=== PATIENT | male | born 1985 | race African-American/Black ===

== ENCOUNTER 2021-08-20 15:09 | Emergency (ER) | payer MEDICAID ==
[~2021-08-20] VITALS: Ht 177.8 cm; Wt 134.0 kg
[2021-08-20 15:57] LABS: BASOPHILS % 0.3 % (0.0-2.0); EOSINOPHILS % 1.5 % (0.0-5.0); HEMATOCRIT. 39.4 % (42.0-52.0); HEMOGLOBIN. 13.7 g/dL (14.0-18.0); LYMPHOCYTES % 10.6 % (20.0-50.0); MEAN CORPUSCULAR VOLUME 86.2 fL (80.0-94.0); MONOCYTES % 11.9 % (2.0-8.0); NEUTROPHILS % 75.7 % (40.0-76.0); PLATELET 167 x1000/uL (130-400); RED BLOOD CELL COUNT 4.57 mill/uL (4.7-6.1); RED CELL DISTRIBUTION WIDTH 13.8 % (11.6-14.6)
[2021-08-20] MEDS ORDERED: OLANZAPINE 10 MG/VIAL IM ONE (16:00)
[2021-08-20 16:07] LABS: CHLORIDE 110 mEq/L (98-107)
[2021-08-20 16:15] LABS: ETHANOL BLOOD < 10 mg/dL
[2021-08-20 17:00] LABS: CLARITY URINE CLEAR (CLEAR); COLOR URINE DARK YELLOW (YELLOW); KETONES URINE 1+ (NEGATIVE); LEUKOCYTE ESTERASE URINE TRACE (NEGATIVE); NITRITE URINE NEGATIVE (NEGATIVE); OCCULT BLOOD URINE NEGATIVE (NEGATIVE); PROTEIN URINE 1+ (NEGATIVE)
[2021-08-20 17:12] LABS: *AMPHETAMINES SCREEN URINE NEGATIVE (NEGATIVE); *BARBITURATES SCREEN URINE NEGATIVE (NEGATIVE); *BENZODIAZEPINES SCREEN URINE NEGATIVE (NEGATIVE); *COCAINE SCREEN URINE NEGATIVE (NEGATIVE); CANNABINOID URINE SCREEN PRESUMTIVE POSITIVE (NEGATIVE); METHADONE URINE SCREEN NEGATIVE (NEGATIVE); OPIATES URINE SCREEN NEGATIVE (NEGATIVE); PHENCYCLIDINE URINE SCREEN NEGATIVE (NEGATIVE)
[2021-08-20] MEDS ORDERED: HALOPERIDOL LACTATE 5MG/ML VIAL IM ONE (21:00)
[2021-08-21] MEDS: OLANZAPINE 5MG TABLET ODT PO SCH ×2 (09:15→17:40)
[2021-08-21] MEDS ORDERED: LORAZEPAM 1MG TABLET PO ONE ×2 (10:30→23:00)
[2021-08-21] MEDS ORDERED: LORAZEPAM 1MG TABLET PO NR (19:00)
[2021-08-22] MEDS: OLANZAPINE 5MG TABLET ODT PO SCH (09:12)
[2021-08-22 12:50] VITALS: BP 146/88
== END 2021-08-22 12:57 | disposition home or self-care (01) ==
LOC: ER 15:09
DX: R45.1 Restlessness and agitation (principal); F78.A9 Other genetic related intellectual disability; T40.711A Poisoning by cannabis, accidental (unintentional), initial encounter; Y92.9 Unspecified place or not applicable; R56.9 Unspecified convulsions
CPT/HCPCS: 36415; 80053; 80305; 80307; 80320; 80329; 81003; 85025; 96372; 99285; J1630; J3490; G0480